=== PATIENT | female | born 1985 | race Caucasian/White ===

== ENCOUNTER 2017-03-04 15:28 | Emergency (ER) | payer BC, OTHER ==
[~2017-03-04] VITALS: Ht 167.6 cm; Wt 74.0 kg
[~2017-03-04 15:28] MED LIST: DOCU-131 PO; IBUP-1222 PO; OXYC-302 PO
[2017-03-04 16:59] LABS: BASOPHILS # (AUTO) 0.05 x10^3/uL (0-0.1); BASOPHILS % (AUTO) 1 % (0-1); EOSINOPHILS # (AUTO) 0.14 x10^3/uL (0-0.4); EOSINOPHILS % (AUTO) 1 % (1-7); LYMPHOCYTES # (AUTO) 4.23 x10^3/uL (1-3.4); LYMPHOCYTES % (AUTO) 41 % (22-44); MD NO; MEAN CORPUSCULAR HEMOGLOBIN 29.4 pg (27.0-34.8); MEAN CORPUSCULAR HGB CONC 33.3 g/dL (32.4-35.8); MEAN CORPUSCULAR VOLUME 88.3 fL (80-100); MEAN PLATELET VOLUME 7.6 fL (7.4-10.4); MONOCYTES # (AUTO) 0.53 x10^3/uL (0.2-0.8); MONOCYTES % (AUTO) 5 % (2-9); NEUTROPHILS # (AUTO) 5.35 x10^3/uL (1.8-6.8); NEUTROPHILS % (AUTO) 52 % (42-75); PLATELET COUNT 359 x10^3/uL (130-400); RED BLOOD COUNT 4.77 x10^6/uL (3.82-5.3)
[2017-03-04 19:33] LABS: MICROSCOPIC NOT IND
[2017-03-04 19:34] LABS: CULTURE INDICATED? NO
[2017-03-04 20:00] VITALS: BP 108/54
[2017-03-04 20:09] VITALS: BP 119/66
== END 2017-03-04 20:12 | disposition home or self-care (01) ==
LOC: ED 20:06
DX: O03.9 Complete or unspecified spontaneous abortion without complication (principal); Z3A.14 14 weeks gestation of pregnancy
CPT/HCPCS: 36415; 76801; 81003; 84702; 85025; 86850; 86900; 99285; J2790

== ENCOUNTER 2017-12-14 22:21 | Outpatient (CLI) | payer BC ==
[2017-12-14] MEDS ORDERED: ACETAMINOPHEN 325 MG TABLET ONE (22:56)
[2017-12-14 23:00] LABS: MICROSCOPIC NOT IND
[2017-12-14] MEDS ORDERED: ACETAMINOPHEN 325 MG TABLET PO ONE (23:00)
== END 2017-12-14 23:50 | disposition home or self-care (01) ==
LOC: LDOP 22:21
PROVIDERS: ATTEND Obstetrics & Gynecology
DX: O26.893 Other specified pregnancy related conditions, third trimester (principal); R10.9 Unspecified abdominal pain; R51 Headache; Z3A.38 38 weeks gestation of pregnancy
CPT/HCPCS: 59025; 81003; 87086; 99211; G0463

== ENCOUNTER 2017-12-21 10:04 | Inpatient (IN) | payer BC ==
[~2017-12-21] VITALS: Ht 165.1 cm; Wt 85.0 kg
[2017-12-21] MEDS ORDERED: LACTATED RINGERS 1,000 ML IV SCH ×2 (10:14→10:30)
[2017-12-21] MEDS ORDERED: OXYTOCIN 30U/ 0.9% NaCL 500ML 500 ML IV SCH (10:14)
[2017-12-21] MEDS ORDERED: METOCLOPRAMIDE 5 MG/ML, 2ML IV ONE (10:30)
[2017-12-21] MEDS ORDERED: SODIUM CITRATE/CITRIC ACID 30 ML UDC PO ONE (10:30)
[2017-12-21] MEDS ORDERED: PLEASE ENTER HEIGHT AND WEIGHT MC SCH (10:30)
[2017-12-21] MEDS ORDERED: LACTATED RINGERS 1,000 ML IVBOLUS ONE (10:30)
[2017-12-21 10:39] LABS: BASOPHILS # (AUTO) 0.03 x10^3/uL (0-0.1); BASOPHILS % (AUTO) 0 % (0-1); EOSINOPHILS # (AUTO) 0.18 x10^3/uL (0-0.4); EOSINOPHILS % (AUTO) 1 % (1-7); LYMPHOCYTES # (AUTO) 3.59 x10^3/uL (1-3.4); LYMPHOCYTES % (AUTO) 21 % (22-44); MD NO; MEAN CORPUSCULAR HEMOGLOBIN 30.1 pg (27.0-34.8); MEAN CORPUSCULAR HGB CONC 34.1 g/dL (32.4-35.8); MEAN CORPUSCULAR VOLUME 88.5 fL (80-100); MEAN PLATELET VOLUME 8.4 fL (7.4-10.4); MONOCYTES # (AUTO) 0.66 x10^3/uL (0.2-0.8); MONOCYTES % (AUTO) 4 % (2-9); NEUTROPHILS # (AUTO) 12.44 x10^3/uL (1.8-6.8); NEUTROPHILS % (AUTO) 74 % (42-75); PLATELET COUNT 370 x10^3/uL (130-400); RED BLOOD COUNT 4.11 x10^6/uL (3.82-5.3); RED CELL DISTRIBUTION WIDTH 13.1 % (9.6-15.2)
[2017-12-21] MEDS ORDERED: NEWBORN KIT ONE (11:22)
[2017-12-21] MEDS ORDERED: METOCLOPRAMIDE 5 MG/ML, 2ML ONE (11:22)
[2017-12-21] MEDS ORDERED: SODIUM CITRATE/CITRIC ACID 30 ML UDC ONE (11:22)
[2017-12-21] MEDS ORDERED: FENTANYL PF 100 MCG/2ML ONE (11:31)
[2017-12-21] MEDS ORDERED: HYDROmorphone 2 MG/ML, 1ML ONE (11:31)
[2017-12-21] MEDS ORDERED: OXYTOCIN 10 UNITS/ML, 1ML ONE (11:31)
[2017-12-21] MEDS ORDERED: ONDANSETRON 2MG/ML, 2ML ONE (11:31)
[2017-12-21] MEDS ORDERED: CEFAZOLIN 1,000 MG ONE (11:31)
[2017-12-21] MEDS ORDERED: OXYTOCIN 30U/ 0.9% NaCL 500ML 500 ML ONE (11:53)
[2017-12-21] MEDS ORDERED: EPHEDRINE 50 MG/ML, 1ML ONE (12:25)
[2017-12-21] MEDS ORDERED: MEPERIDINE/PF 50 MG/ML IVPush PRN (13:30)
[2017-12-21] MEDS ORDERED: MEPERIDINE/PF 100 MG/ML IVPush PRN (13:30)
[2017-12-21] MEDS ORDERED: morphine SULFATE 10 MG/ML, 1ML IVPush PRN (13:30)
[2017-12-21] MEDS ORDERED: ACETAMINOPHEN 325 MG TABLET PO PRN ×2 (13:30)
[2017-12-21] MEDS ORDERED: METHYLERGONOVINE 0.2 MG/ML IM PRN (13:30)
[2017-12-21] MEDS ORDERED: MISOPROSTOL 200 MCG TABLET PR PRN (13:30)
[2017-12-21] MEDS ORDERED: ONDANSETRON 2MG/ML, 2ML IV PRN (13:30)
[2017-12-21] MEDS ORDERED: HYDROcodone/APAP 7.5-325MG/15ML UDC ONE (14:48)
[2017-12-21] MEDS ORDERED: HYDROcodone/APAP 7.5-325MG/15ML UDC PO PRN (15:00)
[2017-12-21 16:15] VITALS: BP 112/65
[2017-12-21] MEDS: KETOROLAC 30 MG/1 ML IV SCH ×2 (16:43→22:31)
[2017-12-21 19:10] VITALS: BP 102/61
[2017-12-21] MEDS: OXYcodone/APAP 5/325MG TABLET PO PRN (19:53)
[2017-12-21 20:36] LABS: MEAN CORPUSCULAR HEMOGLOBIN 30.1 pg (27.0-34.8); MEAN CORPUSCULAR HGB CONC 33.6 g/dL (32.4-35.8); MEAN CORPUSCULAR VOLUME 89.5 fL (80-100); MEAN PLATELET VOLUME 8.1 fL (7.4-10.4); PLATELET COUNT 284 x10^3/uL (130-400); RED BLOOD COUNT 3.64 x10^6/uL (3.82-5.3)
[2017-12-21 20:53] LABS: BASOPHILS # (AUTO) 0.06 x10^3/uL (0-0.1); BASOPHILS % (AUTO) 0 % (0-1); EOSINOPHILS # (AUTO) 0.04 x10^3/uL (0-0.4); EOSINOPHILS % (AUTO) 0 % (1-7); LYMPHOCYTES # (AUTO) 3.39 x10^3/uL (1-3.4); LYMPHOCYTES % (AUTO) 16 % (22-44); MD SCAN; MONOCYTES # (AUTO) 0.77 x10^3/uL (0.2-0.8); MONOCYTES % (AUTO) 4 % (2-9); NEUTROPHILS # (AUTO) 16.53 x10^3/uL (1.8-6.8); NEUTROPHILS % (AUTO) 80 % (42-75)
[2017-12-21] MEDS: LACTATED RINGERS 1,000 ML IV SCH ×2 (21:29→23:29)
[2017-12-21] MEDS: DOCUSATE 100 MG CAPSULE PO PRN (22:31)
[2017-12-21] MEDS: OXYTOCIN 30U/ 0.9% NaCL 500ML 500 ML IV SCH (23:29)
[2017-12-22 00:16] VITALS: BP 107/70
[2017-12-22] MEDS: OXYcodone/APAP 5/325MG TABLET PO PRN ×5 (00:16→20:46)
[2017-12-22] MEDS: KETOROLAC 30 MG/1 ML IV SCH ×4 (04:44→22:55)
[2017-12-22 04:45] VITALS: BP 100/63
[2017-12-22] MEDS: LACTATED RINGERS 1,000 ML IV SCH ×5 (05:29→21:29)
[2017-12-22 08:00] VITALS: BP 93/57
[2017-12-22] MEDS: OXYTOCIN 30U/ 0.9% NaCL 500ML 500 ML IV SCH ×2 (09:29→19:29)
[2017-12-22] MEDS: PRENATAL VIT/IRON/FA 1 EACH TABLET PO SCH (10:40)
[2017-12-22] MEDS: DOCUSATE 100 MG CAPSULE PO PRN ×2 (10:43→20:46)
[2017-12-22 12:00] VITALS: BP 100/60
[2017-12-22 19:25] VITALS: BP 101/62
[2017-12-22] MEDS: SIMETHICONE 80 MG CHEW TAB PO PRN (21:33)
[2017-12-23] MEDS: OXYcodone/APAP 5/325MG TABLET PO PRN ×5 (01:03→21:35)
[2017-12-23] MEDS: SIMETHICONE 80 MG CHEW TAB PO PRN ×3 (04:17→17:12)
[2017-12-23] MEDS: KETOROLAC 30 MG/1 ML IV SCH ×2 (05:24→10:56)
[2017-12-23] MEDS: OXYTOCIN 30U/ 0.9% NaCL 500ML 500 ML IV SCH (05:29)
[2017-12-23] MEDS: LACTATED RINGERS 1,000 ML IV SCH ×2 (05:29)
[2017-12-23 08:50] VITALS: BP 96/60
[2017-12-23] MEDS: DOCUSATE 100 MG CAPSULE PO PRN ×2 (09:23→17:12)
[2017-12-23] MEDS: PRENATAL VIT/IRON/FA 1 EACH TABLET PO SCH (09:23)
[2017-12-23] MEDS: IBUPROFEN 600 MG TABLET PO PRN (17:12)
[2017-12-23 19:00] VITALS: BP 103/57
[2017-12-24] MEDS: IBUPROFEN 600 MG TABLET PO PRN ×2 (01:08→07:43)
[2017-12-24] MEDS: OXYcodone/APAP 5/325MG TABLET PO PRN ×3 (01:08→12:33)
[2017-12-24] MEDS: SIMETHICONE 80 MG CHEW TAB PO PRN (01:08)
[2017-12-24 07:05] VITALS: BP 106/73
[2017-12-24] MEDS ORDERED: BISACODYL 10 MG SUPP PR PRN (07:30)
[2017-12-24] MEDS: DOCUSATE 100 MG CAPSULE PO PRN (07:43)
[2017-12-24] MEDS: PRENATAL VIT/IRON/FA 1 EACH TABLET PO SCH (07:45)
[2017-12-24] MEDS ORDERED: PREN1TAB47 PO (08:45)
== END 2017-12-24 13:16 | disposition home or self-care (01) | DRG 787 ==
LOC: LDIP 10:04 → 2NW 15:46
PROVIDERS: ADMIT Obstetrics & Gynecology; ATTEND Obstetrics & Gynecology
PROC: 10D00Z1 Extraction of Products of Conception, Low, Open Approach (ICD-10-PCS; principal; 2017-12-21)
DX: O34.211 Maternal care for low transverse scar from previous cesarean delivery (principal); O99.354 Diseases of the nervous system complicating childbirth; O99.344 Other mental disorders complicating childbirth; G43.909 Migraine, unspecified, not intractable, without status migrainosus; F32.9 Major depressive disorder, single episode, unspecified; Z37.0 Single live birth; Z3A.39 39 weeks gestation of pregnancy; Z80.3 Family history of malignant neoplasm of breast; Z82.49 Family history of ischemic heart disease and other diseases of the circulatory system; Z83.3 Family history of diabetes mellitus; Z88.0 Allergy status to penicillin
CPT/HCPCS: 36415; 85025; 86850; 86900; G0378; J0690; J1170; J1885; J2405; J3010; J2590; J2765; J7120

== ENCOUNTER 2020-01-21 18:50 | Emergency (ER) | payer BC ==
[~2020-01-21] VITALS: Ht 165.1 cm; Wt 75.5 kg
[~2020-01-21 18:50] MED LIST changes: +PRENATAL ONE T1 EACH PO
--- NOTE | 2020-01-21 19:18 | NUR ---
VAs DONE ON PT AT THIS TIME. PT AMBULATORY WITH STEADY GAIT FROM TRIAGE TO ROOM.
--- NOTE | 2020-01-21 19:52 | NUR ---
PT TO CT VIA [facility] AT THIS TIME.
[2020-01-21 20:23] LABS: BASOPHILS % (AUTO) 1 % (0-1); EOSINOPHILS % (AUTO) 3 % (1-7); LYMPHOCYTES % (AUTO) 35 % (22-44); MEAN CORPUSCULAR HEMOGLOBIN 29.7 pg (27.0-34.8); MEAN CORPUSCULAR HGB CONC 33.5 g/dL (32.4-35.8); MEAN PLATELET VOLUME 7.3 fL (7.4-10.4); MONOCYTES % (AUTO) 8 % (2-9); NEUTROPHILS % (AUTO) 54 % (42-75); PLATELET COUNT 341 x10^3/uL (130-400); RED BLOOD COUNT 3.94 x10^6/uL (3.82-5.3)
[2020-01-21 20:29] LABS: MD NO
[2020-01-21 20:30] LABS: ALANINE AMINOTRANSFERASE 31 U/L (12-78); ALBUMIN 3.4 g/dL (3.4-5.0); ANION GAP 2 mmol/L (5-15); CALCIUM 9.1 mg/dL (8.5-10.1); CHLORIDE 108 mmol/L (98-107)
[2020-01-21 20:35] LABS: ALKALINE PHOSPHATASE 55 U/L (45-117); BILIRUBIN,TOTAL 0.3 mg/dL (0.2-1.0); CREATININE 0.78 mg/dL (0.55-1.02)
[2020-01-21] MEDS ORDERED: SODIUM CHLORIDE FLUSH 10ML SYR IVF ONE (21:30)
--- NOTE | 2020-01-21 21:57 | NUR ---
pt resting comfortably in gurney with stable vs and call light within reach. piv established at this time. pt verbalizes understanding of need for ct with contrast. all questions answered.
[2020-01-21] MEDS ORDERED: OMNIPAQUE 350 MG/ML, 100ML BOTTLE ONE (22:00)
--- NOTE | 2020-01-21 22:08 | NUR ---
PT TO CT VIA [facility] AT THIS TIME.
--- NOTE | 2020-01-21 23:43 | NUR ---
pt d/c with d/c summary. pt refered to opthamologist and pt verbalizes understanding of need for f/u with o/p specialist. pt ambulates to registration desk with steady gait for d/c home with . pt denies any other needs pertaining to this visit. pt vss prior to pt d/c.
[2020-01-21 23:46] VITALS: BP 118/69
== END 2020-01-21 23:50 | disposition home or self-care (01) ==
LOC: ED 19:45
DX: H57.04 Mydriasis (principal); R51.9 Headache, unspecified; R42 Dizziness and giddiness; R94.31 Abnormal electrocardiogram [ECG] [EKG]
CPT/HCPCS: 36415; 70450; 70498; 80053; 84703; 85025; 93005; 99285; Q9967